=== PATIENT | female | born 2005 | race Caucasian/White ===

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

== ENCOUNTER 2023-01-17 20:12 | Observation (INO) | payer MEDICAID ==
[~2023-01-17] VITALS: Ht 172.7 cm; Wt 129.8 kg
[~2023-01-17 20:12] MED LIST changes: +PREN-8 PO
[2023-01-17 20:30] VITALS: BP 144/81
[2023-01-17 20:43] LABS: CLARITY,URINE CLOUDY; COLOR,URINE YELLOW
[2023-01-17 20:44] LABS: BACTERIA,URINE LARGE /HPF; BILIRUBIN,URINE NEGATIVE (NEGATIVE); GLUCOSE, URINE (UA) NEGATIVE (NEGATIVE); KETONES,URINE 2+ (NEGATIVE); LEUKOCYTE ESTERASE ,URINE 2+ (NEGATIVE); NITRITE,URINE POSITIVE (NEGATIVE); PROTEIN,URINE 2+ (NEGATIVE); SQUAMOUS EPITHELIAL CELL,UR 0-2 /HPF; URINE OTHER TRANS EPI 5-10 /HPF; WBC,URINE 50-100 /HPF
[2023-01-17 20:45] VITALS: BP 142/84
[2023-01-17 21:00] VITALS: BP 133/85
[2023-01-17] MEDS ORDERED: CEPHALEXIN 250 MG CAPSULE PO ONE (21:15)
[2023-01-17 21:22] LABS: BASOPHILS % (AUTO) 0 % (0-10); EOSINOPHILS # (AUTO) 0.1 10^3/uL (0.0-0.3); EOSINOPHILS % (AUTO) 1 % (0-10); HEMATOCRIT 32 % (35-52); HEMOGLOBIN 10.6 g/dL (11.5-16.0); LYMPHOCYTES # (AUTO) 1.3 10^3/uL (1.0-4.0); LYMPHOCYTES % (AUTO) 14 % (12-44); MEAN CORPUSCULAR HEMOGLOBIN 28 pg (25-34); MEAN CORPUSCULAR HGB CONC 34 g/dL (32-36); MEAN CORPUSCULAR VOLUME 82 fL (80-99); MEAN PLATELET VOLUME 10.4 fL (9.0-12.2); MONOCYTES # (AUTO) 0.7 10^3/uL (0.0-1.0); MONOCYTES % (AUTO) 7 % (0-12); NEUTROPHILS # (AUTO) 7.3 10^3/uL (1.8-7.8); NEUTROPHILS % (AUTO) 77 % (42-75); PLATELET COUNT 198 10^3/uL (130-400); WHITE BLOOD COUNT 9.4 10^3/uL (4.3-11.0)
[2023-01-17 21:36] LABS: ALBUMIN 3.3 GM/DL (3.2-4.5); BILIRUBIN,TOTAL 0.3 MG/DL (0.1-1.0); CALCIUM 8.9 MG/DL (8.5-10.1); CREATININE SERUM 0.74 MG/DL (0.60-1.30); POTASSIUM 3.4 MMOL/L (3.6-5.0); TOTAL PROTEIN 6.7 GM/DL (6.4-8.2); URIC ACID 3.5 MG/DL (2.6-7.2)
[2023-01-17 22:05] VITALS: BP 139/98
[2023-01-17] MEDS ORDERED: NS IV 1000 ML 1,000 ML IV SCH (22:15)
[2023-01-17] MEDS ORDERED: NS IV 1000 ML 1,000 ML ONE (22:17)
[2023-01-17] MEDS ORDERED: ACETAMINOPHEN 500 MG TABLET PO PRN (22:45)
[2023-01-18 00:10] VITALS: BP 131/80
[2023-01-18 02:15] VITALS: BP 119/70
[2023-01-18] MEDS ORDERED: HYDROcodone/ACETAMINOPHEN 5 MG/325 MG TABLET ONE (02:28)
[2023-01-18] MEDS ORDERED: ONDANSETRON INJECTION 4 MG/2 ML (SDV) ONE (02:28)
[2023-01-18] MEDS ORDERED: HYDROcodone/ACETAMINOPHEN 5 MG/325 MG TABLET PO ONE (02:30)
[2023-01-18] MEDS ORDERED: ONDANSETRON INJECTION 4 MG/2 ML (SDV) IVP PRN (02:30)
[2023-01-18 05:40] VITALS: BP 134/80
[2023-01-18 05:41] LABS: BASOPHILS % (AUTO) 0 % (0-10); EOSINOPHILS % (AUTO) 1 % (0-10); HEMATOCRIT 29 % (35-52); HEMOGLOBIN 9.8 g/dL (11.5-16.0); LYMPHOCYTES # (AUTO) 1.1 10^3/uL (1.0-4.0); LYMPHOCYTES % (AUTO) 15 % (12-44); MEAN CORPUSCULAR HEMOGLOBIN 28 pg (25-34); MEAN CORPUSCULAR HGB CONC 34 g/dL (32-36); MEAN CORPUSCULAR VOLUME 82 fL (80-99); MEAN PLATELET VOLUME 10.4 fL (9.0-12.2); MONOCYTES # (AUTO) 0.6 10^3/uL (0.0-1.0); MONOCYTES % (AUTO) 8 % (0-12); NEUTROPHILS # (AUTO) 5.7 10^3/uL (1.8-7.8); NEUTROPHILS % (AUTO) 76 % (42-75); PLATELET COUNT 171 10^3/uL (130-400); WHITE BLOOD COUNT 7.6 10^3/uL (4.3-11.0)
[2023-01-18 06:01] LABS: BILIRUBIN,TOTAL 0.2 MG/DL (0.1-1.0); CALCIUM 8.5 MG/DL (8.5-10.1); CREATININE SERUM 0.6 MG/DL (0.60-1.30); POTASSIUM 3.6 MMOL/L (3.6-5.0); TOTAL PROTEIN 6.1 GM/DL (6.4-8.2)
[2023-01-18 08:00] VITALS: BP 126/76
[2023-01-18] MEDS ORDERED: CEPHALEXIN 250 MG CAPSULE PO ONE (08:00)
--- NOTE | 2023-01-18 10:11 | Short Stay Summary ---
HPI History of Present Illness: 17 yo @ 32 weeks that presented to L&D with UTI symptoms. Worsening lower back pain. She has had a YOUNG but it is her normal YOUNG and has not changed or worsened. She has denied any labor signs or symptoms. + FM. Upon arrival to L&D she was found to have mildly elevated blood pressure which is new for her. She was also found to have protein in her urine. She was monitored ON and blood pressures improved and protein decrease in urine. Elevated protein could be partially attributed to blood in urine from UTI. Patient is feeling better this AM. Will have close f.u tomorrow in clinic. Exam Limitations: no limitations Date seen by provider: Jan 18, 2023 Time Seen by Provider: 10:00 Attending Physician [facility] PCP Admitting Physician: Vivek Estrada MD Attending Physician: Vivek Estrada MD Consult Date of Admission Jan 17, 2023 at 23:05 Home Medications Home Medications Reviewed patient Home Medication Reconciliation performed by pharmacy medication reconciliations smog technician and/or nursing. Patients Allergies have been reviewed. Allergies Coded Allergies: NKANo Known Allergies (Verified Allergy, Unknown, 10/05/05) [id number] Hx Patient Social History Smoking Status: Never a Smoker 2nd Hand Smoke Exposure: No Immunizations Up To Date Influenza Vaccine Up-to-Date: No; Not Current Family Medical History Significant Family History: No Pertinent Family Hx Review of Systems ([facility]) Constitutional: no symptoms reported; No chills, No fever EENTM: no symptoms reported Respiratory: no symptoms reported; No cough, No dyspnea on exertion, No short of breath Cardiovascular: no symptoms reported; No chest pain, No palpitations Gastrointestinal: no symptoms reported; No abdominal pain Genitourinary: dysuria, frequency : Yes Expected Date of Delivery: Mar 11, 2023 Musculoskeletal: no symptoms reported Skin: no symptoms reported Psychiatric/Neurological: No Symptoms Reported Reviewed Test Results Reviewed Test Results Lab Laboratory Tests Test 01/17/23 20:25 01/17/23 21:11 01/18/23 05:30 01/18/23 05:35 Range/Units Urine Color YELLOW Urine Clarity CLOUDY Urine pH 6.0 5-9 Urine Specific [place] 1.025 H 1.016-1.022 Urine Protein 93 H 34 H 6-12 MG/DL Urine Glucose (UA) NEGATIVE NEGATIVE Urine Ketones 2+ H NEGATIVE Urine Nitrite POSITIVE H NEGATIVE Urine Bilirubin NEGATIVE NEGATIVE Urine Urobilinogen 1.0 < = 1.0 MG/DL Urine Leukocyte Esterase 2+ H NEGATIVE Urine RBC (Auto) 3+ H NEGATIVE Urine RBC 10-25 H /HPF Urine WBC 50-100 H /HPF Urine Squamous Epithelial Cells 0-2 /HPF Urine Crystals NONE /LPF Urine Bacteria LARGE H /HPF Urine Casts NONE /LPF Urine Mucus NEGATIVE /LPF Urine Other TRANS EPI 5-10 /HPF Urine Culture Indicated YES Urine Creatinine 139 H 72 30-125 MG/DL Urine Protein/Creatinine Ratio 0.67 0.47 White Blood Count 9.4 7.6 4.3-11.0 10^3/uL Red Blood Count 3.84 3.54 L 3.80-5.11 10^6/uL Hemoglobin 10.6 L 9.8 L 11.5-16.0 g/dL Hematocrit 32 L 29 L 35-52 % Mean Corpuscular Volume 82 82 80-99 fL Mean Corpuscular Hemoglobin 28 28 25-34 pg Mean Corpuscular Hemoglobin Concent 34 34 32-36 g/dL Red Cell Distribution Width 13.0 13.0 10.0-14.5 % Platelet Count 198 171 130-400 10^3/uL Mean Platelet Volume 10.4 10.4 9.0-12.2 fL Immature Granulocyte % (Auto) 0 0 % Neutrophils (%) (Auto) 77 H 76 H 42-75 % Lymphocytes (%) (Auto) 14 15 12-44 % Monocytes (%) (Auto) 7 8 0-12 % Eosinophils (%) (Auto) 1 1 0-10 % Basophils (%) (Auto) 0 0 0-10 % Neutrophils # (Auto) 7.3 5.7 1.8-7.8 10^3/uL Lymphocytes # (Auto) 1.3 1.1 1.0-4.0 10^3/uL Monocytes # (Auto) 0.7 0.6 0.0-1.0 10^3/uL Eosinophils # (Auto) 0.1 0.0 0.0-0.3 10^3/uL Basophils # (Auto) 0.0 0.0 0.0-0.1 10^3/uL Immature Granulocyte # (Auto) 0.0 0.0 0.0-0.1 10^3/uL Sodium Level 139 138 135-145 MMOL/L Potassium Level 3.4 L 3.6 3.6-5.0 MMOL/L Chloride Level 107 109 H 98-107 MMOL/L Carbon Dioxide Level 21 19 L 21-32 MMOL/L Anion Gap 11 10 5-14 MMOL/L Blood Urea Nitrogen 4 L 6 L 7-18 MG/DL Creatinine 0.74 0.60 0.60-1.30 MG/DL Estimat Glomerular Filtration Rate 119 133 BUN/Creatinine Ratio 5 10 Glucose Level 107 H 108 H 70-105 MG/DL Uric Acid 3.5 2.6-7.2 MG/DL Calcium Level 8.9 8.5 8.5-10.1 MG/DL Corrected Calcium 9.5 9.3 8.5-10.1 MG/DL Total Bilirubin 0.3 0.2 0.1-1.0 MG/DL Aspartate Amino Transf (AST/SGOT) 13 11 5-34 U/L Alanine Aminotransferase (ALT/SGPT) 25 22 0-55 U/L Alkaline Phosphatase 138 H 123 40-136 U/L Lactate Dehydrogenase 165 125-220 U/L Total Protein 6.7 6.1 L 6.4-8.2 GM/DL Albumin 3.3 3.0 L 3.2-4.5 GM/DL Physical Exam-(CHC) Physical Exam Vital Signs VS - Last 72 Hours, by Label 01/17/23 01/17/23 01/17/23 01/17/23 20:30 20:30 20:45 21:00 Temp 36.0 36.0 Pulse 98 98 104 99 Resp 18 B/P (MAP) 144/81 144/81 (102) 142/84 (103) 133/85 (101) Pulse Ox 96 96 96 97 O2 Delivery Room Air Room Air Room Air Room Air 01/17/23 01/18/23 01/18/23 01/18/23 22:05 00:10 02:15 05:40 Temp 36.0 36.0 37.4 36.7 Pulse 101 96 82 91 Resp 18 B/P (MAP) 139/98 (112) 131/80 (97) 119/70 (86) 134/80 (98) Pulse Ox 98 97 98 O2 Delivery Room Air Room Air Room Air Room Air 01/18/23 08:00 Temp 36.3 Pulse 79 Resp 18 B/P (MAP) 126/76 (93) Pulse Ox 98 O2 Delivery Room Air Capillary Refill : Less Than 3 Seconds General Appearance: WD/WN, no apparent distress, obese HEENT: PERRL/EOMI Neck: non-tender, full range of motion, supple Respiratory: chest non-tender, lungs clear, normal breath sounds, no respiratory distress, no accessory muscle use Cardiovascular: normal peripheral pulses, no edema, no murmur Gastrointestinal: non tender, soft, other (gravid uterus) Back: no CVA tenderness, no vertebral tenderness Extremities: normal range of motion, non-tender, no pedal edema, no calf tenderness, normal capillary refill Neurologic/Psychiatric: 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 II-XII nml as tested, alert, oriented x 3 Skin: normal color, warm/dry Lymphatic: no adenopathy Short Stay Diagnosis Discharge Diagnosis-Short Stay Admission Diagnosis See problem list Final Discharge Diagnosis See Above Conclusion Plan See Above Assessment/Plan Assessment/Plan Admission Status: Observation (1) UTI (urinary tract infection) in in third trimester Assessment & Plan: - Continue antibiotics to treat UTI, will f.u ctx, push oral hydration (2) Third trimester (3) 32 weeks gestation of (4) Proteinuria affecting in third trimester Assessment & Plan: - Will continue to monitor, discussed worsening signs of pre eclampsia, elevated protein could be attributed to blood in urine (5) Elevated blood pressure affecting in third trimester, antepartum Assessment & Plan: - Blood pressure well controlled this AM, BPP in AM as we do not have US available today, Normal NST during observation, Normal CBC/CMP VIVEK ESTRADA MD Jan 18, 2023 10:11
[2023-01-18] MEDS ORDERED: CEPH500T PO (10:18)
--- NOTE | 2023-01-18 10:18 | Discharge Summary ---
Discharge [facility] Discharge Medications New, Converted or Re-Newed RX: Transmitted to Pharmacy New Medications: Cephalexin (Cephalexin) 500 Mg Tablet 500 MG PO BID for 4 Days, #8 TAB Continued Medications: Vit W-Ca,Fe,FA(<1 mg) ( Formula) 28 Mg Iron-800 Mcg Tablet 1 EACH PO DAILY, TAB Patient Instructions Goal/Follow Up Appt: Tomorrow for BPP and blood pressure check Keep scheduled appt with Sean Activity & Diet Discharge Diet: No Restrictions Activity as Tolerated: Yes VIVEK ROLON MD Jan 18, 2023 10:18
[2023-01-18 10:42] VITALS: BP 119/70
== END 2023-01-18 10:42 | disposition home or self-care (01) ==
LOC: WSo 20:12 → LDRP 20:13 → WSo 23:04 → LDRP 23:05
PROVIDERS: ADMIT Family Medicine; ATTEND Family Medicine
DX: O23.43 Unspecified infection of urinary tract in pregnancy, third trimester (principal); O12.13 Gestational proteinuria, third trimester; O16.3 Unspecified maternal hypertension, third trimester; Z3A.32 32 weeks gestation of pregnancy
CPT/HCPCS: 36415; 80053; 81000; 82570; 83615; 84156; 84550; 85025; 87077; 87088; 87186; 96360; 96361; 96375; 99213; G0378

== ENCOUNTER 2023-01-24 18:48 | Observation (INO) | payer MEDICAID ==
[~2023-01-24] VITALS: Ht 172.7 cm; Wt 131.8 kg
[2023-01-24] VITALS (7 sets, daily range): BP systolic 139–166; BP diastolic 73–93
[2023-01-24 20:48] LABS: BILIRUBIN,URINE NEGATIVE (NEGATIVE); CLARITY,URINE CLEAR; COLOR,URINE YELLOW; GLUCOSE, URINE (UA) 1+ (NEGATIVE); KETONES,URINE NEGATIVE (NEGATIVE); LEUKOCYTE ESTERASE ,URINE 3+ (NEGATIVE); NITRITE,URINE POSITIVE (NEGATIVE); PROTEIN,URINE 2+ (NEGATIVE)
[2023-01-24 20:50] LABS: BACTERIA,URINE LARGE /HPF; WBC,URINE 25-50 /HPF
[2023-01-24 21:09] LABS: BASOPHILS % (AUTO) 0 % (0-10); EOSINOPHILS # (AUTO) 0.1 10^3/uL (0.0-0.3); EOSINOPHILS % (AUTO) 1 % (0-10); HEMATOCRIT 34 % (35-52); HEMOGLOBIN 11.2 g/dL (11.5-16.0); LYMPHOCYTES # (AUTO) 1.5 10^3/uL (1.0-4.0); LYMPHOCYTES % (AUTO) 14 % (12-44); MEAN CORPUSCULAR HEMOGLOBIN 27 pg (25-34); MEAN CORPUSCULAR HGB CONC 33 g/dL (32-36); MEAN CORPUSCULAR VOLUME 82 fL (80-99); MEAN PLATELET VOLUME 10.6 fL (9.0-12.2); MONOCYTES # (AUTO) 0.8 10^3/uL (0.0-1.0); MONOCYTES % (AUTO) 7 % (0-12); NEUTROPHILS # (AUTO) 8.6 10^3/uL (1.8-7.8); NEUTROPHILS % (AUTO) 78 % (42-75); PLATELET COUNT 221 10^3/uL (130-400)
[2023-01-24] MEDS ORDERED: ONDANSETRON 4 MG ORAL DISSOLVE TABLET ONE (21:10)
[2023-01-24] MEDS ORDERED: ACETAMINOPHEN 500 MG TABLET ONE (21:10)
[2023-01-24] MEDS ORDERED: ACETAMINOPHEN 500 MG TABLET PO ONE (21:15)
[2023-01-24] MEDS ORDERED: ONDANSETRON 4 MG ORAL DISSOLVE TABLET PO ONE (21:15)
[2023-01-24 21:24] LABS: ALBUMIN 3.2 GM/DL (3.2-4.5)
[2023-01-24 21:25] LABS: POTASSIUM 3.8 MMOL/L (3.6-5.0)
[2023-01-24 21:26] LABS: CALCIUM 8.8 MG/DL (8.5-10.1)
[2023-01-24 21:27] LABS: TOTAL PROTEIN 6.9 GM/DL (6.4-8.2)
[2023-01-24 21:29] LABS: BILIRUBIN,TOTAL 0.4 MG/DL (0.1-1.0)
[2023-01-24 21:31] LABS: CREATININE SERUM 0.62 MG/DL (0.60-1.30)
[2023-01-24 21:34] LABS: URIC ACID 2.8 MG/DL (2.6-7.2)
[2023-01-24] MEDS: BETAMETHASONE Acetate/Na Phosphate 6 MG/ML INJ IM SCH ×2 (22:31→23:21)
[2023-01-24] MEDS ORDERED: NS IV ONE (22:45)
[2023-01-24] MEDS ORDERED: AMPICILLIN IV ONE (22:45)
--- NOTE | 2023-01-24 23:08 | History & Physical-OB ---
OB - Chief Complaint & HPI Date/Time Date of Admission: Date of Admission: 01/24/2023 Date seen by a Provider: Jan 24, 2023 Time Seen by a Provider: 22:50 Chief Complaint/History OB-Reason for Admission/Chief: Hx : 2 Hx Para: 0 Expected Date of Delivery: Mar 11, 2023 Gestational Age in Weeks: 33 Gestational Age in Days: 3 Other at 33w3d presented to Labor and Delivery due to contractions, dysuria and vaginal discharge. She was found to have elevated blood pressure in the 160s systolic on arrival, which decreased to 150s on repeat, but remains in the 150s at this time. She admits headache, but states she has had the same headaches for the last 2 years. She also admits blurry vision and nausea. No vomiting, no upper abdominal pain. She started having contractions earlier this morning and they became more uncomfortable through the day. Denies leaking fluid or bleeding. She was just treated for a UTI last week and has completed antibiotics, felt better for a day or so then started having discomfort again. She did also have borderline blood pressure in the upper 130s when here last week for UTI. Allergies and Home Medications Allergies Coded Allergies: NKANo Known Allergies (Verified Allergy, Unknown, 10/05/05) Patient Home Medication List Home Medication List Reviewed: Yes Vit W-Ca,Fe,FA(<1 mg) ( Formula) 28 Mg Iron-800 Mcg Tablet, 1 EACH PO DAILY, (Reported) Entered as Reported by: JAVON DAVIS on 12/07/222033 Last Action: Reviewed Discontinued Medications Cephalexin (Cephalexin) 500 Mg Tablet, 500 MG PO BID Prescribed by: VIVEK ROLON on 01/18/23 1018 Last Action: Discontinued OB - History Hx of Present Care: Yes Ultrasounds: Normal mid trimester US (per report) Obstetrical History Hx : 2 Hx Para: 0 Hx # Term Pregnancies: 0 Hx # Pregnancies: 0 Number of Living Children: 0 Hx Total # of Abortions (Spona: 1 Risk Variables Obstetrical Risk Variables: POA Anemia, POA Hypertension Patient Past Medical History PMHx: Denies SurgHx: Denies Social History/Family History Alcohol Use: Denies Use Recreational Drug Use: No Smoking Cessation: Never smoker 2nd Hand Smoke Exposure: No Immunizations Influenza Vaccine Up-to-Date: No; Not Current Tetanus Booster (TDap): Less than 5yrs (01/01/23) Rubella: immune RPR/VDRL: Negative GBS Status: Unknown HBsAG: Negative OB - Admission Exam Physical Exam Vitals: Vital Signs 01/24/23 01/24/23 01/24/23 19:30 19:45 21:26 Temp 36.3 Pulse 85 Resp 20 B/P (MAP) 158/91 (113) Pulse Ox 100 O2 Delivery Room Air HEENT: NCAT Lungs: Clear Abdomen: Non tender Extremities: Edema Reflexes: Normal Cervical Dilatation: Fingertip Effacement: 0% Station: Ballotable Heart Rate: 120's Decelerations: No Decelerations Contractions on Admission: 6-10 Minutes Apart Labs Laboratory Tests Test 01/24/23 19:15 01/24/23 20:59 Range/Units Urine Color YELLOW Urine Clarity CLEAR Urine pH 7.0 5-9 Urine Specific [place] 1.010 L 1.016-1.022 Urine Protein 57 H 6-12 MG/DL Urine Glucose (UA) 1+ H NEGATIVE Urine Ketones NEGATIVE NEGATIVE Urine Nitrite POSITIVE H NEGATIVE Urine Bilirubin NEGATIVE NEGATIVE Urine Urobilinogen 1.0 < = 1.0 MG/DL Urine Leukocyte Esterase 3+ H NEGATIVE Urine RBC (Auto) 2+ H NEGATIVE Urine RBC 5-10 H /HPF Urine WBC 25-50 H /HPF Urine Squamous Epithelial Cells 5-10 /HPF Urine Crystals NONE /LPF Urine Bacteria LARGE H /HPF Urine Casts NONE /LPF Urine Mucus SMALL H /LPF Urine Culture Indicated YES Urine Creatinine 46 30-125 MG/DL Urine Protein/Creatinine Ratio 1.24 White Blood Count 11.0 4.3-11.0 10^3/uL Red Blood Count 4.13 3.80-5.11 10^6/uL Hemoglobin 11.2 L 11.5-16.0 g/dL Hematocrit 34 L 35-52 % Mean Corpuscular Volume 82 80-99 fL Mean Corpuscular Hemoglobin 27 25-34 pg Mean Corpuscular Hemoglobin Concent 33 32-36 g/dL Red Cell Distribution Width 13.0 10.0-14.5 % Platelet Count 221 130-400 10^3/uL Mean Platelet Volume 10.6 9.0-12.2 fL Immature Granulocyte % (Auto) 0 % Neutrophils (%) (Auto) 78 H 42-75 % Lymphocytes (%) (Auto) 14 12-44 % Monocytes (%) (Auto) 7 0-12 % Eosinophils (%) (Auto) 1 0-10 % Basophils (%) (Auto) 0 0-10 % Neutrophils # (Auto) 8.6 H 1.8-7.8 10^3/uL Lymphocytes # (Auto) 1.5 1.0-4.0 10^3/uL Monocytes # (Auto) 0.8 0.0-1.0 10^3/uL Eosinophils # (Auto) 0.1 0.0-0.3 10^3/uL Basophils # (Auto) 0.0 0.0-0.1 10^3/uL Immature Granulocyte # (Auto) 0.0 0.0-0.1 10^3/uL Neutrophils % (Manual) % Sodium Level 138 135-145 MMOL/L Potassium Level 3.8 3.6-5.0 MMOL/L Chloride Level 108 H 98-107 MMOL/L Carbon Dioxide Level 22 21-32 MMOL/L Anion Gap 8 5-14 MMOL/L Blood Urea Nitrogen 5 L 7-18 MG/DL Creatinine 0.62 0.60-1.30 MG/DL Estimat Glomerular Filtration Rate 131 BUN/Creatinine Ratio 8 Glucose Level 87 70-105 MG/DL Uric Acid 2.8 2.6-7.2 MG/DL Calcium Level 8.8 8.5-10.1 MG/DL Corrected Calcium 9.4 8.5-10.1 MG/DL Total Bilirubin 0.4 0.1-1.0 MG/DL Aspartate Amino Transf (AST/SGOT) 14 5-34 U/L Alanine Aminotransferase (ALT/SGPT) 24 0-55 U/L Alkaline Phosphatase 142 H 40-136 U/L Lactate Dehydrogenase 154 125-220 U/L Total Protein 6.9 6.4-8.2 GM/DL Albumin 3.2 3.2-4.5 GM/DL OB - Assessment/Plan/Diagnosis Assessment Admission Dx Third trimester Preeclampsia 33 weeks gestation Urinary tract infection contractions Admission Status: Observation Plan Other Plan Preeclampsia- suspect with severe features given her initial BP was above 160 and she has urine pr/cr ratio above 1. She does have normal creatinine, LFTs and platelets and has not had another BP above 160. However, given she is less than 34 weeks and at least borderline severe features, will attempt transfer to hospital with NICU in case of need to deliver soon. Betamethasone 12 mg IM given. 33 weeks gestation- betamethasone as above given likely delivery soon Urinary tract infection- last culture with E coli only resistant to cipro. IV ampicillin given. contractions- no cervical change, suspect uterine irritability due to UTI. Continue to monitor closely. ANTONIO MEJIA MD Jan 24, 2023 23:08
--- NOTE | 2023-01-24 23:33 | Discharge Summary ---
Discharge Summary Hospital Course Hospital Course Date of Admission: Admission Diagnosis : Third trimester 33 weeks gestation contractions Elevated blood pressure Family Physician/Provider: Linda Estrada MD Date of Discharge: 01/24/23 Discharge Diagnosis: Third trimester 33 weeks gestation contractions Urinary tract infection Preeclampsia with severe features Hospital Course: Pt admitted and had elevated blood pressure in the 160s on admit, down to 150s t hroughout stay, with urine pr/cr ratio over 1. Transferred to [facility] due to and likely need for delivery in near future. Given betamethasone and ampicillin prior to d/c. Labs and Pending Lab Test: Laboratory Tests 01/24/23 19:15: Urine Color YELLOW, Urine Clarity CLEAR, Urine pH 7.0, Urine Specific [place] 1.010L, Urine Protein 57H, Urine Glucose (UA) 1+H, Urine Ketones NEGATIVE, Urine Nitrite POSITIVEH, Urine Bilirubin NEGATIVE, Urine Urobilinogen 1.0, Urine Leukocyte Esterase 3+H, Urine RBC (Auto) 2+H, Urine RBC 5-10H, Urine WBC 25-50H, Urine Squamous Epithelial Cells 5-10, Urine Crystals NONE, Urine Bacteria LARGEH , Urine Casts NONE, Urine Mucus SMALLH, Urine Culture Indicated YES, Urine Creatinine 46, Urine Protein/Creatinine Ratio 1.24 01/24/23 20:59: White Blood Count 11.0, Red Blood Count 4.13, Hemoglobin 11.2L, Hematocrit 34L, Mean Corpuscular Volume 82, Mean Corpuscular Hemoglobin 27, Mean Corpuscular Hemoglobin Concent 33, Red Cell Distribution Width 13.0, Platelet Count 221, Mean Platelet Volume 10.6, Immature Granulocyte % (Auto) 0, Neutrophils (%) (Auto) 78H, Lymphocytes (%) (Auto) 14, Monocytes (%) (Auto) 7, Eosinophils (%) (Auto) 1, Basophils (%) (Auto) 0, Neutrophils # (Auto) 8.6H, Lymphocytes # (Auto) 1.5, Monocytes # (Auto) 0.8, Eosinophils # (Auto) 0.1, Basophils # (Auto) 0.0, Immature Granulocyte # (Auto) 0.0, Neutrophils % (Manual) , Sodium Level 138, Potassium Level 3.8, Chloride Level 108H, Carbon Dioxide Level 22, Anion Gap 8, Blood Urea Nitrogen 5L, Creatinine 0.62, Estimat Glomerular Filtration Rate 131, BUN/Creatinine Ratio 8, Glucose Level 87, Uric Acid 2.8, Calcium Level 8.8, Corrected Calcium 9.4, Total Bilirubin 0.4, Aspartate Amino Transf (AST/SGOT) 14, Alanine Aminotransferase (ALT/SGPT) 24, Alkaline Phosphatase 142H , Lactate Dehydrogenase 154, Total Protein 6.9, Albumin 3.2 Home Meds Active Reported Formula ( Vit W-Ca,Fe,FA(<1 mg)) 28 Mg Iron-800 Mcg Tablet 1 Each PO DAILY Assessment/Pt DC Instructions See hospital course Discharge Physical Examination Allergies: Coded Allergies: NKANo Known Allergies (Verified Allergy, Unknown, 10/05/05) NATONIO MEJIA MD Jan 24, 2023 23:33
[2023-01-25 01:05] VITALS: BP 136/77
[2023-01-25 03:40] VITALS: BP 141/83
[2023-01-25 03:57] VITALS: BP 141/83
== END 2023-01-25 03:57 | disposition critical access hospital (66) ==
LOC: WSo 18:48 → LDRP 18:49 → WSo 21:59 → LDRP 22:00
PROVIDERS: ADMIT Family Medicine; ATTEND Family Medicine
DX: O14.93 Unspecified pre-eclampsia, third trimester (principal); O23.43 Unspecified infection of urinary tract in pregnancy, third trimester; O60.03 Preterm labor without delivery, third trimester; N39.0 Urinary tract infection, site not specified; Z3A.33 33 weeks gestation of pregnancy
CPT/HCPCS: 80053; 81000; 82570; 83615; 84156; 84550; 85007; 85025; 85027; 87077; 87088; 87186; 87210; 96372; 96374; 96375; G0378; G0379; 36415